=== PATIENT | female | born 1990 | race African-American/Black ===

== ENCOUNTER 2016-10-02 23:56 | Emergency (ER) | payer SELFPAY | END 2016-10-03 00:40 | disposition home or self-care (01) | LOC: ER 23:56 | DX: N64.4 Mastodynia (principal); Z91.013 Allergy to seafood | CPT/HCPCS: 99283 ==

== ENCOUNTER 2016-11-07 11:34 | Emergency (ER) | payer SELFPAY ==
[2016-11-07 11:28] LABS: ASCORBIC ACID (UR NOT ORDER) NEG (NEG); BILIRUBIN, URINE NEGATIVE (NEG); KETONE, URINE NEGATIVE (NEG); LEUKOCYTE ESTERASE(NOT OR NEG (NEG); NITRITE (URINE) NEG (NEG); WBC (NOT ORDERED) (RFLEX) 3 (0-5)
[2016-11-07 13:50] LABS: CHLAMYDIA TRACH PCR NOT DETECTED (NOT DETEC); GC PCR NOT DETECTED (NOT DETECT); SOURCE: FEMALE URINE
== END 2016-11-07 13:08 | disposition home or self-care (01) ==
LOC: ER 11:34
PROVIDERS: Physician Assistant
DX: N76.0 Acute vaginitis (principal); F17.200 Nicotine dependence, unspecified, uncomplicated; Z91.013 Allergy to seafood
CPT/HCPCS: 81001; 84703; 87210; 87491; 87591; 96372; 99283; A9270-GY; J0696